=== PATIENT | female | born 1955 | race Two or more races ===

== ENCOUNTER → 2018-11-29 | Emergency (ER) | payer OTHER ==
[~2018-11-29] MED LIST: AVAPRO75 MG; CELEXA20 MG PO; DIOVAN160 M1 PO; XANAX PO
== END | disposition left against medical advice (07) ==
LOC: ER 21:49
DX: Z53.20 Procedure and treatment not carried out because of patient's decision for unspecified reasons (principal)

== ENCOUNTER 2020-06-20 09:03 | Outpatient (CLI) | payer OTHER | END 2020-06-20 09:09 | disposition home or self-care (01) | LOC: PPH VACUNA 09:03 | DX: Z23 Encounter for immunization (principal) ==

== ENCOUNTER 2021-01-30 09:00 | Outpatient (CLI) | payer OTHER | END 2021-01-30 09:30 | disposition home or self-care (01) | LOC: PPH VACUNA 09:00 | PROVIDERS: ATTEND Emergency Medicine Pediatric Emergency Medicine | DX: Z23 Encounter for immunization (principal) ==

== ENCOUNTER 2022-11-26 01:38 | Emergency (ER) | payer OTHER ==
[~2022-11-26] VITALS: Ht 160 cm; Wt 71.2 kg
[2022-11-26] MEDS ORDERED: LEXAPRO5 MG PO (01:58)
[2022-11-26] MEDS ORDERED: CRESTOR20 MG PO (01:59)
[2022-11-26] MEDS ORDERED: ONDANSETRON ODT4 MG PO (06:25)
[2022-11-26] MEDS ORDERED: PEPCID40 MG PO (06:25)
== END 2022-11-26 06:35 ==
LOC: ER 01:38
DX: I10 Essential (primary) hypertension (principal); R00.2 Palpitations; K29.60 Other gastritis without bleeding

== ENCOUNTER 2023-01-26 10:18 | Outpatient (CLI) | payer OTHER ==
[~2023-01-26 10:18] MED LIST changes: +CRESTOR20 MG PO; +LEXAPRO5 MG PO; +ONDANSETRON ODT4 MG PO; +PEPCID40 MG PO
== END 2023-01-26 10:50 | disposition home or self-care (01) ==
LOC: RAD 10:18
PROVIDERS: ATTEND Internal Medicine Pulmonary Disease
DX: J45.30 Mild persistent asthma, uncomplicated (principal)

== ENCOUNTER 2024-04-19 22:24 | Emergency (ER) | payer OTHER ==
[~2024-04-19] VITALS: Ht 160 cm; Wt 67.6 kg
[2024-04-19] MEDS ORDERED: METOPROLOL SUCC25 MG PO (23:18)
[2024-04-19] MEDS ORDERED: IRBESARTAN150 MG PO (23:18)
[2024-04-19] MEDS ORDERED: ESCITALOPRAM OX10 MG PO (23:18)
[2024-04-19 23:19] VITALS: BP 140/76; O2SAT 100
[2024-04-19] MEDS ORDERED: HYDROCHLOROTH12.5 M2 PO (23:19)
[2024-04-20] MEDS ORDERED: KETOROLAC TROMETHAMINE 60 MG VIAL IM ONE ×2 (01:51→02:15)
[2024-04-20] MEDS ORDERED: DOLOGESIC-DF 51 EACH PO (01:52)
== END 2024-04-20 02:06 | disposition home or self-care (01) ==
LOC: ER 22:24
DX: I10 Essential (primary) hypertension (principal); M62.838 Other muscle spasm
CPT/HCPCS: 96372; 99282; J1885